=== PATIENT | male | born 1980 | race Caucasian/White ===

== ENCOUNTER → 2024-07-15 06:20 | Day surgery (SDC) | payer BC, SELFPAY | LOC: GI 06:20 | PROVIDERS: ATTENDING PHYSICIAN Internal Medicine; FAMILY PHYSICIAN Family Medicine | DX: Z12.11 Encounter for screening for malignant neoplasm of colon (principal); K64.8 Other hemorrhoids; K57.50 Diverticulosis of both small and large intestine without perforation or abscess without bleeding; K55.20 Angiodysplasia of colon without hemorrhage; K62.89 Other specified diseases of anus and rectum | CPT/HCPCS: G0121 ==